=== PATIENT | male | born 1990 | race Caucasian/White ===

== ENCOUNTER 2023-04-22 14:10 | Outpatient (REF) | payer OTHER, SELFPAY ==
--- OUTSIDE RECORDS SUMMARY | 2023-04-22 14:23 | XMS_ITS | Continuity of Care Document ---
Author Name Unknown Organization [facility] Address [address] [place] [address] Phone Care Team Providers Care Agricultural Research Engineer Name Role Phone Naman Mauricio MD Unavailable Unavailable Medications Medication Instructions Dosage Effective Dates (start - stop) Status Comments BUPROPION HCL (unknown strength) Not Available - Active CYCLOBENZAPRINE HCL (unknown strength) Not Available - Active DICLOFENAC SODIUM ER (unknown strength) Not Available - Active OXYCODONE HCL (unknown strength) Not Available - Active Procedures Procedure Date Office/Outpatient Visit,New, [facility] 2020 Advance Directives Directive Yes / No Effective Date File Name No Information Encounters Encounter Description Practice Location Reason(s) For Visit Diagnoses Date Provider Providers Copied on Encounter [facility], [address], [place], [place], [id number], [place] tel:[phone] [facility] No Information 1 Hang [place]. [facility], [address] [place] [address], [facility] [address], [place], [place], [id number] , [place]. [phone] Office/Outpat ient Visit,[facility], [facility], [address], [place], [place], [id number], [place] tel:[phone] [facility] No Information 1 Hang [place]. [place] [facility], [address], [address], [place], [place], [id number] , [place]. tel:[phone] Referring Provider: Darrel Collins [address], [address]. tel:[phone] Family History Family Member Type Diagnosis Age At Onset No Information Payers Payer name Insurance type Covered alliance party ID Authoriza tiashlie(s) [facility] [id number] Social History Type Description Quantity Date Captured Comments Sex Male Smoking Status No Information Chief Complaint And Reason For Visit No Information Reason For Referral Reason For Referral No Information History Of Present Illness Encounter Date Complaint History Of Prese nt Illness No Information Functional Status Date Functional Assessmen t No Information Instructions Date Instruction Additional Infor mation No Information Assessments Type Assessment Date No Information Patient Care Teams Name Effective Dates (start - stop) Status Members No Information
--- OUTSIDE RECORDS SUMMARY | 2023-04-22 14:23 | XMS_ITS | Continuity of Care Document ---
Author Name Unknown Organization [facility] Address [address] [place] [address] Phone Care Team Providers Care Aircraft Magneto Mechanic Name Role Phone Will John HICKMAN Unavailabl e Procedures Procedure Date Lidocaine injection Betamethasone acet&sod phosp Omnipaque 240 20ml INJ FORAMEN EPIDURAL L/S FLUOROGUIDE FOR SPINE INJECT MANUAL THERAPY THERAPEUTIC EXERCISES OFFICE/OUTPATIENT VISIT, EST PT EVALUATION THERAPEUTIC EXERCISES OFFICE/OUTPATIENT VISIT, EST OFFICE CONSULTATION Advance Directives Directive Yes / No Effective Date File Name No Information Encounters Encounter Description Practice Location Reason(s) For Visit Diagnoses Date Provider Providers Copied on Encounter [facility], [address] [facility] [place], [id number], [place] tel:[phone] [facility] [place] No Information Will [address] [facility] [place], [id number], [place]. tel:[phone] [facility], [address] [facility] [place], [place], [id number], [place] tel:[phone] [facility] Inj lumbar spine pain (chief complaint) Lumbago Will [address] [facility] [place], [id number], [place]. tel:[phone] Referring Provider: John Skinner, [address] [facility] [place], [address]. [phone] [facility], [address] [place] [address] [place], [place], [id number], [place] tel:[phone] [facility] [place] No Information Crispin Green. [address] [facility] [place], [address], [place]. tel:[phone] OFFICE/OUTPATI ENT VISIT, EST [facility], [address] [place] [address] [place], [place], [id number], [place] tel:[phone] [facility] [place] No Information Will John. [address] [place] [address] [place], [id number], [place]. tel:[phone] [facility], [address] [place] [address] [place], [place], [id number], [place] tel:[phone] [facility] [place] No Information Crispin Green. [address] [place] [address] [place], [address], [place]. tel:[phone] OFFICE/OUTPATI ENT VISIT, EST [facility], [address] [place] [address] [place], [place], [id number], [place] tel:[phone] [facility] [place] No Information Will John. [address] [place] [address] [place], [id number], [place]. tel:[phone] OFFICE CONSULTATION [facility], [address] [place] [address] [place], [place], [id number], [place] tel:[phone] [facility] [place] No Information Will John. [address] [place] [address] [place], [id number], [place]. tel:[phone] Referring Provider: Gustabo Beckwith, [address], [address]. tel:[phone] Family History Family Member Type Diagnosis Age At Onset No Information Payers Payer name Insurance type Covered democrat ID Authoriza tion(s) [facility] [id number] Social History Type Description Quantity Date Captured [...]
[2023-04-22 15:27] LABS: Amphetamine Screen Urine Negative (Negative); Barbiturate Screen Urine Negative (Negative); Benzodiazepines Screen Urine Negative (Negative); Cannabinoid Screen Urine Negative (Negative); Cocaine Screen Urine Negative (Negative); Methadone Screen Urine Negative (Negative); Methamphetamines Screen Urine Negative (Negative); Opiate Screen Urine Negative (Negative); Oxycodone Screen Urine Negative (Negative); Phencyclidine Screen Urine Negative (Negative); Tricyclic Antidepressant Urine Negative (Negative)
== END 2023-04-22 14:11 | disposition home or self-care (01) ==
LOC: NPINS 14:10
PROVIDERS: PCP Physician Assistant Medical
DX: F90.0 Attention-deficit hyperactivity disorder, predominantly inattentive type (principal)
CPT/HCPCS: 80053; 80061; 80306

== ENCOUNTER 2025-01-11 08:45 | Outpatient (CLI) | payer OTHER, SELFPAY | END 2025-01-11 08:46 | disposition home or self-care (01) | PROVIDERS: PCP Physician Assistant Medical; Visit Provider Family Medicine | DX: E78.5 Hyperlipidemia, unspecified (principal); E88.810 Metabolic syndrome | CPT/HCPCS: 80053; 80061 ==